=== PATIENT | female | born 2000 | race Two or more races ===

== ENCOUNTER 2022-12-31 12:37 | Emergency (ER) | payer MEDICAID ==
[~2022-12-31] VITALS: Ht 170.2 cm; Wt 47.6 kg
[2022-12-31 12:45] VITALS: BP 116/45
== END 2022-12-31 13:53 | disposition home or self-care (01) ==
LOC: ER 12:37
DX: S90.121A Contusion of right lesser toe(s) without damage to nail, initial encounter (principal); W51.XXXA Accidental striking against or bumped into by another person, initial encounter; Y93.01 Activity, walking, marching and hiking; Y92.89 Other specified places as the place of occurrence of the external cause; Y99.8 Other external cause status
CPT/HCPCS: 73630

== ENCOUNTER 2023-03-16 11:37 | Emergency (ER) | payer MEDICAID ==
[~2023-03-16] VITALS: Ht 170.2 cm; Wt 47.3 kg
[2023-03-16 12:11] LABS: Basophils # (auto) 0 10 ^3/uL (0-0.2); Basophils % (auto) 0.9 % (0.0-2.0); Eosinophils # (auto) 0.1 10 ^3/uL (0-0.8); Eosinophils % (auto) 2.7 % (0.0-7.0); Hematocrit 41.2 % (36.0-46.0); Lymphocytes # (auto) 1.2 10 ^3/uL (0.4-5.4); Lymphocytes % (auto) 28.2 % (10.0-50.0); Mean Corpuscular Hemoglobin 32.7 pg (28.0-32.0); Mean Corpuscular Hgb Conc. 33.9 g/dL (32.0-36.0); Mean Corpuscular Volume 96.5 fL (80.0-100.0); Monocytes # (auto) 0.3 10 ^3/uL (0-1.3); Monocytes % (auto) 7.2 % (0.0-12.0); Neutrophils # (auto) 2.6 10 ^3/uL (1.6-8.6); Nucleated Red Blood Cells % 0.1 %; Red Blood Cells 4.27 10^6/uL (4.0-5.20); Red Cell Distribution Width 13.3 % (11.8-14.3); White Blood Cell 4.2 10^3/uL (4.4-10.8)
[2023-03-16] MEDS ORDERED: SODIUM CHLORIDE 0.9% 1,000 ML IVB ONE (12:15)
[2023-03-16 12:17] VITALS: PULSE 73; RESP 100; O2SAT 100
[2023-03-16 12:36] LABS: INR 1.11 (0.9-1.15); Prothrombin Time 11.6 sec (9.3-11.8)
[2023-03-16] MEDS ORDERED: SODIUM CHLORIDE 0.9% 500 ML IV ONE (13:15)
[2023-03-16 14:51] LABS: Urine Bacteria FEW /hpf (None Seen); Urine Blood 3+ /uL (Negative); Urine Clarity Clear (Clear); Urine Color Colorless (Yellow); Urine Protein, UAD Negative (Negative); Urine Specific Gravity 1.004 (1.001-1.035); Urine Urobilinogen Normal (Negative); Urine WBC <1 /hpf (0 - 5)
[2023-03-16 15:00] VITALS: BP 87/52; PULSE 75; RESP 16; O2SAT 98
[2023-03-16] MEDS ORDERED: SODIUM CHLORIDE 0.9% 1,000 ML IV ONE (15:45)
== END 2023-03-16 17:22 | disposition home or self-care (01) ==
LOC: ER 11:37
DX: N93.9 Abnormal uterine and vaginal bleeding, unspecified (principal); R10.2 Pelvic and perineal pain; I95.9 Hypotension, unspecified
CPT/HCPCS: 36415; 76801; 76817; 81001; 84702; 85025; 85610; 85730; 86850; 86900; 86901; 96360; 96361; 99284; J7030; J7040

== ENCOUNTER 2023-12-04 08:40 | Observation (INO) | payer MEDICAID ==
[2023-12-04] MEDS ORDERED: PREN-96 PO (09:07)
[2023-12-04 10:32] LABS: Urine Bacteria FEW /hpf (None Seen); Urine Blood Negative /uL (Negative); Urine Clarity Clear (Clear); Urine Protein, UAD Negative (Negative); Urine Specific Gravity 1.002 (1.001-1.035); Urine Urobilinogen Normal (Negative); Urine WBC 1 /hpf (0 - 5)
[2023-12-04 10:34] LABS: Urine Color Light Yellow (Yellow)
== END 2023-12-04 11:03 | disposition home or self-care (01) ==
LOC: LDRP 08:40 → UNDOADMOB 08:40 → LDRP 08:47
PROVIDERS: ADMIT Obstetrics & Gynecology; ATTEND Obstetrics & Gynecology
DX: O47.03 False labor before 37 completed weeks of gestation, third trimester (principal); O23.13 Infections of bladder in pregnancy, third trimester; N30.00 Acute cystitis without hematuria; Z3A.32 32 weeks gestation of pregnancy
CPT/HCPCS: 59025; 76815; 81001; 81002; 87086; 94760; G0378

== ENCOUNTER 2023-12-06 09:05 | Observation (INO) | payer MEDICAID ==
[~2023-12-06 09:05] MED LIST: PREN-96 PO
== END 2023-12-06 10:50 | disposition home or self-care (01) ==
LOC: LDRP 09:05
PROVIDERS: ADMIT Obstetrics & Gynecology; ATTEND Obstetrics & Gynecology
DX: O60.03 Preterm labor without delivery, third trimester (principal); Z3A.32 32 weeks gestation of pregnancy
CPT/HCPCS: 59025; 76818; 81002; G0378

== ENCOUNTER 2023-12-13 10:15 | Observation (INO) | payer MEDICAID | END 2023-12-13 12:18 | disposition home or self-care (01) | LOC: UNDOADMOB 10:15 → LDRP 10:15 | PROVIDERS: ADMIT Obstetrics & Gynecology; ATTEND Obstetrics & Gynecology | DX: O60.03 Preterm labor without delivery, third trimester (principal); Z3A.33 33 weeks gestation of pregnancy | CPT/HCPCS: 59025; 81002; 94760; G0378 ==

== ENCOUNTER 2024-02-03 14:00 | Inpatient (IN) | payer MEDICAID ==
[~2024-02-03] VITALS: Ht 170.2 cm; Wt 59.0 kg
[2024-02-03 15:42] LABS: Basophils # (auto) 0 10 ^3/uL (0-0.2); Basophils % (auto) 0.4 % (0.0-2.0); Eosinophils # (auto) 0.1 10 ^3/uL (0-0.8); Eosinophils % (auto) 1.4 % (0.0-7.0); Hematocrit 36.2 % (36.0-46.0); Hemoglobin 12.3 g/dL (12.2-16.2); Lymphocytes # (auto) 1.1 10 ^3/uL (0.4-5.4); Lymphocytes % (auto) 12.9 % (10.0-50.0); Mean Corpuscular Hemoglobin 32.8 pg (28.0-32.0); Mean Corpuscular Volume 96.6 fL (80.0-100.0); Monocytes # (auto) 0.5 10 ^3/uL (0-1.3); Monocytes % (auto) 5.2 % (0.0-12.0); Neutrophils # (auto) 6.9 10 ^3/uL (1.6-8.6); Neutrophils % (auto) 80.1 % (37.0-80.0); Nucleated Red Blood Cells % 0.1 %; Red Blood Cells 3.74 10^6/uL (4.0-5.20); Red Cell Distribution Width 14.5 % (11.8-14.3); White Blood Cell 8.6 10^3/uL (4.4-10.8)
[2024-02-03 15:54] LABS: INR 0.95 (0.9-1.15); Prothrombin Time 10.1 sec (9.3-11.8)
[2024-02-03 16:12] LABS: Alanine Aminotransferase 73 U/L (7-40); Albumin 3.4 g/dL (3.2-4.8); Alkaline Phosphatase 207 U/L (46-116); Anion Gap 10 (5-15); Aspartate Aminotransferase 61 U/L (13-40); BUN/Creatinine Ratio 26.9 (10.0-20.0); Blood Urea Nitrogen 14 mg/dL (9-23); Calcium 8.9 mg/dL (8.7-10.4); Carbon Dioxide 22 mmol/L (20-30); Chloride 109 mmol/L (98-107); Glucose 66 mg/dL (74-106); Potassium 4.1 mmol/L (3.5-5.1); Sodium 141 mmol/L (136-145)
[2024-02-03 16:13] LABS: Bilirubin, Total 0.8 mg/dL (0.2-1.0); Total Protein 5.7 g/dL (5.7-8.2)
[2024-02-03] MEDS: LABETALOL HCL 20 MG/4 ML VL IV ONE (16:58)
[2024-02-03] MEDS ORDERED: ONDANSETRON HCL 4 MG/2 ML VIAL IV PRN ×2 (17:15→17:45)
[2024-02-03] MEDS: SODIUM CHLORIDE 0.9% 1,000 ML IV SCH (17:15)
[2024-02-03] MEDS: hydrALAZINE HCL 20 MG/ML VL IV ONE (17:36)
[2024-02-03] MEDS: MAGNESIUM SULFATE 1GM/100ML 100 ML IV SCH (17:45)
[2024-02-03] MEDS ORDERED: HYDROcodone-ACET 5/325MG TAB PO PRN (17:45)
[2024-02-03] MEDS ORDERED: DOCUSATE SOD 100 MG CAP PO PRN (17:45)
[2024-02-03] MEDS: hydrALAZINE HCL 20 MG/ML VL IV PRN (17:46)
[2024-02-03] MEDS: LACTATED RINGER'S 1,000 ML IV SCH (17:55)
[2024-02-03] MEDS: ceFAZolin 1GM/50ML 50 ML IV ONE (17:55)
[2024-02-03] MEDS ORDERED: hydrALAZINE HCL 20 MG/ML VL IV PRN (19:45)
[2024-02-03] MEDS: LABETALOL HCL 200 MG TAB PO SCH (20:50)
[2024-02-03] MEDS ORDERED: ceFAZolin 1GM/50ML 50 ML IV SCH ×2 (22:00)
[2024-02-03] MEDS: MAGNESIUM SULFATE 40MG/ML 1,000 ML IV SCH (22:15)
[2024-02-03] MEDS: SODIUM CHLOR 0.9% PF (SALINE LOCK) 10ML VIAL/SYR IV SCH (22:53)
[2024-02-04] VITALS (19 sets, daily range): BP systolic 105–134; BP diastolic 67–93; PULSE 72–101; RESP 11–18; TEMP 97.8–98.8; O2SAT 95–98
[2024-02-04] MEDS: ceFAZolin 1GM/50ML 50 ML IV SCH (01:53)
[2024-02-04 05:32] LABS: Basophils # (auto) 0 10 ^3/uL (0-0.2); Basophils % (auto) 0.4 % (0.0-2.0); Eosinophils # (auto) 0.1 10 ^3/uL (0-0.8); Eosinophils % (auto) 1.3 % (0.0-7.0); Hematocrit 32.1 % (36.0-46.0); Lymphocytes # (auto) 1.2 10 ^3/uL (0.4-5.4); Lymphocytes % (auto) 15.2 % (10.0-50.0); Mean Corpuscular Hemoglobin 33.3 pg (28.0-32.0); Mean Corpuscular Hgb Conc. 34.4 g/dL (32.0-36.0); Mean Corpuscular Volume 96.9 fL (80.0-100.0); Monocytes # (auto) 0.4 10 ^3/uL (0-1.3); Monocytes % (auto) 5.4 % (0.0-12.0); Neutrophils # (auto) 6.1 10 ^3/uL (1.6-8.6); Neutrophils % (auto) 77.7 % (37.0-80.0); Red Blood Cells 3.31 10^6/uL (4.0-5.20); Red Cell Distribution Width 15.2 % (11.8-14.3); White Blood Cell 7.9 10^3/uL (4.4-10.8)
[2024-02-04 05:40] LABS: Alanine Aminotransferase 61 U/L (7-40); Albumin 3.2 g/dL (3.2-4.8); Alkaline Phosphatase 179 U/L (46-116); Anion Gap 11 (5-15); Aspartate Aminotransferase 46 U/L (13-40); BUN/Creatinine Ratio 23.3 (10.0-20.0); Bilirubin, Total 0.6 mg/dL (0.2-1.0); Blood Urea Nitrogen 10 mg/dL (9-23); Carbon Dioxide 20 mmol/L (20-30); Chloride 106 mmol/L (98-107); Glucose 70 mg/dL (74-106); Potassium 3.8 mmol/L (3.5-5.1); Sodium 137 mmol/L (136-145); Total Protein 5.4 g/dL (5.7-8.2)
[2024-02-04 05:52] LABS: Magnesium 6.6 mg/dL (1.6-2.6)
[2024-02-04] MEDS: ENOXAPARIN SOD 40 MG/0.4 ML SYRINGE SC SCH (10:00)
[2024-02-05] VITALS (7 sets, daily range): BP systolic 121–125; BP diastolic 85–90; PULSE 72–87; RESP 15–18; TEMP 97.6–98.3; O2SAT 97–98
[2024-02-05] MEDS: ACETAMINOPHEN 325 MG TAB PO PRN (00:18)
[2024-02-05 05:57] LABS: Basophils # (auto) 0 10 ^3/uL (0-0.2); Basophils % (auto) 0.6 % (0.0-2.0); Eosinophils # (auto) 0.2 10 ^3/uL (0-0.8); Eosinophils % (auto) 2.6 % (0.0-7.0); Hematocrit 33.2 % (36.0-46.0); Hemoglobin 11.2 g/dL (12.2-16.2); Lymphocytes # (auto) 1.4 10 ^3/uL (0.4-5.4); Lymphocytes % (auto) 19.8 % (10.0-50.0); Mean Corpuscular Hemoglobin 32.5 pg (28.0-32.0); Mean Corpuscular Hgb Conc. 33.6 g/dL (32.0-36.0); Mean Corpuscular Volume 96.6 fL (80.0-100.0); Monocytes # (auto) 0.5 10 ^3/uL (0-1.3); Monocytes % (auto) 7.8 % (0.0-12.0); Neutrophils # (auto) 4.8 10 ^3/uL (1.6-8.6); Neutrophils % (auto) 69.2 % (37.0-80.0); Nucleated Red Blood Cells % 0.1 %; Red Blood Cells 3.44 10^6/uL (4.0-5.20); Red Cell Distribution Width 14.9 % (11.8-14.3); White Blood Cell 6.9 10^3/uL (4.4-10.8)
[2024-02-05 06:12] LABS: Alanine Aminotransferase 53 U/L (7-40); Albumin 3.2 g/dL (3.2-4.8); Alkaline Phosphatase 182 U/L (46-116); Anion Gap 6 (5-15); Aspartate Aminotransferase 36 U/L (13-40); BUN/Creatinine Ratio 19.6 (10.0-20.0); Bilirubin, Total 0.5 mg/dL (0.2-1.0); Blood Urea Nitrogen 9 mg/dL (9-23); Calcium 7.6 mg/dL (8.7-10.4); Carbon Dioxide 24 mmol/L (20-30); Chloride 110 mmol/L (98-107); Glucose 92 mg/dL (74-106); Potassium 4.1 mmol/L (3.5-5.1); Sodium 140 mmol/L (136-145); Total Protein 5.5 g/dL (5.7-8.2)
[2024-02-05] MEDS ORDERED: LABE200T9 PO (07:00)
[2024-02-05 07:28] LABS: Magnesium 3.2 mg/dL (1.6-2.6)
== END 2024-02-05 10:55 | disposition home or self-care (01) | DRG 561 ==
LOC: ER 14:00 → TELE 17:52 → DOU IN ICU 02-04 01:04 → TELE-CENTR 02-04 16:14
PROVIDERS: ADMIT Internal Medicine; ATTEND Obstetrics & Gynecology
DX: O14.95 Unspecified pre-eclampsia, complicating the puerperium (principal); Z83.3 Family history of diabetes mellitus
CPT/HCPCS: 36415; 71046; 76705; 80053; 83735; 83880; 84484; 85025; 85610; 87081; 93005; 96365; 96366; 96367; 96375; G0378